=== PATIENT | female | born 1960 | race Caucasian/White ===

== ENCOUNTER → 2017-09-11 | Outpatient (CLI) | payer OTHER ==
--- NOTE | 2017-09-11 18:12 | XCELERA REPORT ---
[address] [address] Transthoracic Echocardiogram Report Name: RANDI CRUZ Age: 57 yrs Gender: Female : 1960 Patient Status: Outpatient Patient Location: Study Date: 09/11/2017 02:03 PM Procedure: A complete two-dimensional transthoracic echocardiogram was performed (2D, M-mode, spectral and color flow Doppler). The study was technically adequate with some images being suboptimal in quality. Reason For Study: SOB Ordering Physician: EL CHAVIS Performed By: Aylin Obrien Interpretation Summary The left ventricular ejection fraction is normal. There is borderline concentric left ventricular hypertrophy. The left ventricle is grossly normal size. Doppler measurements suggest impaired left ventricular relaxation, which is associated with grade I/IV or mild diastolic dysfunction Wall motion cannot be accurately commented on, but no definite regional wall motion abnormalities noted. Borderline right ventricular enlargement. The right ventricular systolic function is normal. The right atrium is normal in size The left atrial size is normal. There is a trace amount of mitral regurgitation There is no mitral valve stenosis. There is no aortic valve stenosis No aortic regurgitation is present. There is a trace to mild amount of tricuspid regurgitation Right ventricular systolic pressure is at the upper limits of normal The aortic root is not well visualized but is probably normal size. The inferior vena cava was not well visualized Minimal pericardial effusion. MMode/2D Measurements & Calculations RVDd: 3.1 cm LVIDd: 4.8 cm FS: 37.2 % Ao root diam: 2.3 cm IVSd: 0.74 cm LVIDs: 3.0 cm EDV(Teich): 105.0 mlAo root area: 4.1 cm2 LVPWd: 0.87 cmESV(Teich): 34.6 ml EF(Teich): 67.1 % LVOT diam: 1.6 cm LVOT area: 2.1 cm2 Doppler Measurements & Calculations MV E max cindi: MV dec slope: Ao V2 max: LV V1 max P.4 cm/sec 138.0 cm/sec 3.0 mmHg MV A max cindi: 337.9 cm/sec2 Ao max PG: LV V1 max: 85.3 cm/sec MV dec time: 7.6 mmHg 86.4 cm/sec MV E/A: 0.80 0.20 sec LILI(V,D): 1.3 cm2 PA V2 max: TR max cindi: 95.0 cm/sec 221.3 cm/sec PA max PG: TR max P.6 mmHg 3.6 mmHg Left Ventricle The left ventricle is grossly normal size. There is borderline concentric left ventricular hypertrophy. The left ventricular ejection fraction is normal. Doppler measurements suggest impaired left ventricular relaxation, which is associated with grade I/IV or mild diastolic dysfunction. Wall motion cannot be accurately commented on, but no definite regional wall motion abnormalities noted. Right Ventricle Borderline right ventricular enlargement. The right ventricular systolic function is normal. Atria The right atrium is normal in size. The left atrial size is normal. Interarterial septum not well visualized and not well dopplered. Cannot comment on ASD/PFO presence. Mitral Valve The mitral valve is grossly normal. There is no mitral valve stenosis. There is a trace amount of mitral regurgitation. Aortic Valve The aortic valve is grossly normal. There is no aortic valve stenosis. No aortic regurgitation is present. Tricuspid Valve The tricuspid valve is not well visualized, but is grossly normal. There is no tricuspid stenosis. There is a trace to mild amount of tricuspid regurgitation. Right ventricular systolic pressure is at the upper limits of normal. Pulmonic Valve The pulmonic valve is not well visualized. Great Vessels The aortic root is not well visualized but is probably normal size. The inferior vena cava was not well visualized. Effusions Minimal pericardial effusion. : EL CHAVIS > Seun Kruse
== END ==
LOC: SP 13:46
PROVIDERS: ATTEND Family Medicine Geriatric Medicine
DX: R06.02 Shortness of breath (principal)
CPT/HCPCS: 93306

== ENCOUNTER → 2017-09-27 | Outpatient (CLI) | payer OTHER ==
[2017-09-27 09:45] LABS: ARTERIAL BLOOD BASE EXCESS 0.3 mmol/L; ARTERIAL BLOOD H2CO3 1.24 mmol/L (1.05-1.35); ARTERIAL BLOOD HCO3 25.1 mmol/L (20-26); ARTERIAL BLOOD O2 SATURATION 96.1 % (94-98); ARTERIAL BLOOD PCO2 41.2 mmHg (35-45); ARTERIAL BLOOD PO2 82.1 mmHg (80-100); ARTERIAL BLOOD TOTAL CO2 26.3 mmol/L (21-25)
[2017-09-27 09:46] LABS: ARTERIAL BLOOD FIO2 ROOM AIR
--- NOTE | 2017-09-28 18:00 | Pulmonary Function Test ---
Pulmonary Function Test Date of Procedure:: 09/28/17 INDICATION:: Wheezing Referring Provider: Power Station Operator: Lyssa Jensen TURNER OFF, FRONT END [employer]UPAL DEVELOPER - Report Spirometry: FVC 2.55 L 94% FEV1 2.16 L 96% FEV1/FVC % 84 predicted 84 FEF 25-75% 2.45 L 99% Lung Volume: Total lung capacity 3.90 L 90% Vital capacity 2.55 L 94% Inspiratory capacity 2.18 L FRC into 1.72 L 85% ERV 0.14 L RV 1.35 L 85% RV/TLC % 35 predicted 37 Diffusion Capactity: Diffusion capacity 17.3 77% DLCO/VA 6.55 165% Impression: No obstructive ventilatory defect. No restrictive ventilatory defect hyperinflation or air trapping. Mild decrease in diffusion capacity.
== END ==
LOC: RT 07:09
PROVIDERS: ATTEND Family Medicine Geriatric Medicine
DX: R06.2 Wheezing (principal)
CPT/HCPCS: 36600; 82803; 94010; 94727; 94729